=== PATIENT | female | born 1995 | race Hispanic/Latino ===

== ENCOUNTER 2018-01-12 17:38 | Emergency (ER) | payer SELFPAY | END 2018-01-12 19:11 | disposition home or self-care (01) | LOC: EDH 17:38 | DX: N94.6 Dysmenorrhea, unspecified (principal); R10.9 Unspecified abdominal pain | CPT/HCPCS: 81025 ==

== ENCOUNTER 2019-02-12 15:25 | Emergency (ER) | payer OTHER ==
[2019-02-12 16:21] LABS: APPEARANCE,URINE Clear (CLEAR); BILIRUBIN,URINE Negative (NEGATIVE); COLOR,URINE Yellow (YELLOW); GLUCOSE, URINE (UA) Negative (NEGATIVE); KETONES,URINE Negative (NEGATIVE); LEUKOCYTE ESTERASE ,URINE Large (NEGATIVE); NITRATE,URINE Negative (NEGATIVE); OCCULT BLOOD,URINE Negative (NEGATIVE); PROTEIN,URINE Negative (NEGATIVE)
[2019-02-12 16:29] LABS: HCG,QUAL RESULT NEGATIVE (NEGATIVE)
[2019-02-12 16:36] LABS: RBC,URINE None Seen /HPF (0-1); WBC,URINE 26-50 /HPF (0-1)
[2019-02-12 16:37] LABS: BACTERIA,URINE Rare /HPF (None Seen); MUCUS,URINE Few LPF (None Seen)
== END 2019-02-12 17:14 | disposition home or self-care (01) ==
LOC: EDH 15:25
DX: N39.0 Urinary tract infection, site not specified (principal); Z72.0 Tobacco use
CPT/HCPCS: 81001; 81025